=== PATIENT | male | born 1980 | race Two or more races ===

== ENCOUNTER → 2024-10-21 | Outpatient (CLI) | payer BC, MEDICAID, SELFPAY ==
--- NOTE | 2024-10-21 16:00 | XR_ITS ---
Examination: MRI cervical spine without intravenous contrast Date and time of exam: October 21, 2024 at 1733 hours INDICATIONS: Neck pain radiating to the left arm with numbness in the arm and loss of strength in the fingers beginning May 2024 Technique: Multiple axial and sagittal sections of the cervical spine to been obtained. T2 weighted sagittal sections, TR 3, 270, TE 117 T1-weighted sagittal sections, TR 500, TE 11 T1-weighted axial sections, TR 607, TE 12, axial sections TR 18, TE 27 and T2 weighted transverse sections, TR 3920, TE 122. Findings: Adequate alignment cervical vertebra bodies on the lateral view No cervical fracture. Intact odontoid. Diffuse cervical disc desiccation. Mild disc narrowing C5-C6 C3-C4 advanced right neural foraminal stenosis. C4-C5 moderate right neural foraminal stenosis C5-C6 moderate bilateral neural foraminal stenosis C6-C7 no disc protrusion C7-T1 no disc protrusion IMPRESSION: C3-C4 advanced right neural foraminal stenosis C4-C5 moderate right neural foraminal stenosis C5-C6 moderate bilateral neural foraminal stenosis
== END | disposition home or self-care (01) ==
PROVIDERS: PCP Internal Medicine; Referring Provider Orthopaedic Surgery; Visit Provider Orthopaedic Surgery
DX: M48.02 Spinal stenosis, cervical region (principal)
CPT/HCPCS: 72141